=== PATIENT | male | born 1970 | race Caucasian/White ===

== ENCOUNTER 2018-12-21 17:04 | Emergency (ER) | payer SELFPAY ==
[~2018-12-21] VITALS: Ht 162.6 cm; Wt 77.0 kg
[2018-12-21 17:07] VITALS: BP 112/72
== END 2018-12-21 17:15 | disposition left against medical advice (07) ==
LOC: ER 17:04
DX: Z53.21 Procedure and treatment not carried out due to patient leaving prior to being seen by health care provider (principal)

== ENCOUNTER 2018-12-21 22:57 | Emergency (ER) | payer SELFPAY | END 2018-12-21 23:00 | disposition left against medical advice (07) | LOC: ER 22:57 | DX: Z53.21 Procedure and treatment not carried out due to patient leaving prior to being seen by health care provider (principal) ==